=== PATIENT | female | born 1965 | race Caucasian/White ===

== ENCOUNTER 2016-11-27 06:08 | Day surgery (SDC) | payer MEDICARE, OTHER ==
[2016-11-24 18:17] LABS: HEMATOCRIT 35.9 % (36.0-48.0); HEMOGLOBIN 11.6 g/dL (12.0-16.0)
[2016-11-24 20:54] LABS: BUN (BLOOD UREA NITROGEN) 21 MG/DL (6-23); CALCIUM, SERUM 9.4 MG/DL (8.5-10.4); CHLORIDE, SERUM 100 MMOL/L (96-112); CO2 (CARBON DIOXIDE) 25 MMOL/L (24-34); CREATININE 0.98 MG/DL (0.55-1.02); GFR AFRICAN AMERICAN 76 ML/MIN (>=60); GFR NON AFRICAN AMERICAN 66 ML/MIN (>=60); GLUCOSE, SERUM 124 MG/DL (60-99); POTASSIUM, SERUM 4.6 MMOL/L (3.5-5.3); SODIUM, SERUM 134 MMOL/L (135-148)
[~2016-11-27] VITALS: Ht 157.5 cm; Wt 99.8 kg
--- NOTE | ~2016-11-27 | OP ---
Record Of Operation [facility] [address] [place]. [address] NAME: ZURDO GRACIA : 61 STATUS : [place] [facility] [place] PAT#: [id number] AGE: 51 ADM/REG DATE : 11/27/16 MR#: [id number] REPORT SERV DATE: 11/27/16 DICTATED BY: FAVIAN HAYES DATE: 11/27/16 REPORT STATUS : Draft TRANSCRIBED BY: MODL DATE: 11/27/16 DATE OF PROCEDURE: 11/27/2016 PREOPERATIVE DIAGNOSIS: Possible left tonsillar mass. POSTOPERATIVE DIAGNOSIS: Possible left tonsillar mass with small lesion in the vallecula, consistent with ectopic lymphoid tissue. OPERATIVE PROCEDURE: Direct laryngoscopy with biopsy. ANESTHESIA: General endotracheal. ESTIMATED BLOOD LOSS: 2 mL. INTRAOPERATIVE FLUIDS: 450 mL crystalloid. INTRAOPERATIVE FINDINGS: No mass identified in the area of concern around the left tonsillar fossa. A small rust of what appeared to be ectopic lymphoid tissue within the vallecula which was removed for routine histology. OPERATIVE PROCEDURE: The patient was identified in the holding room, transported to the operating room. In the operating room, the patient was placed in the operating room table in supine position. Following induction of anesthesia, the patient was intubated without difficulty. The table was turned to 90 degrees for the operative procedure. Examination of the left tonsillar fossa revealed no mass lesion. Palpation of this area, likewise, revealed no mass within the area of the left tonsil or left tongue base. A direct laryngoscopy was then performed. Once again, there was no mass identified in the area of the left tonsil or left oropharynx. The examination of the larynx revealed the true vocal true and false vocal folds and ventricles to be clear. The post cricoid and piriform sinuses were likewise clear. There was no lesion identified on the laryngeal surface of the epiglottis. Examination of the vallecula did reveal an approximate 5 mm lesion in the central portion of the vallecula which appeared most consistent with an ectopic area of lymphoid tissue. This lesion was excised to confirm its benign histology. Hemostasis was achieved in this area with application of topical adrenaline. On application of topical adrenaline, there was no residual bleeding identified. The patient was awakened from anesthesia, extubated in the operating room, and transported to the recovery room in good condition. The patient tolerated the procedure well. There were no apparent complications. SPECIMENS: Included the lesion from the vallecula, appearing consistent with lymphoid tissue. CLARENCE/HAMLET Favian Hayes, Record Of Operation [address] [address] NAME: ZURDO GRACIA : 61 STATUS : [place] [facility] [place] PAT#: [id number] AGE: 51 ADM/REG DATE : 11/27/16 MR#: [id number] REPORT SERV DATE: 11/27/16 DICTATED BY: FAVIAN HAYES DATE: 11/27/16 REPORT STATUS : Draft TRANSCRIBED BY: HAMLET DATE: 11/27/16 Mirta / [id number] CC: Mirta Dey M.D.
[~2016-11-27 06:08] MED LIST: ASAB PO; BESIVANCE0.6 % OPH; DEPASPRINK PO; DEPO-PROVER150 MG/ML IM; DEPO-PROVERA IM; DUREZOL0.05 % OPH; GLUCOPHAGE1000 MG PO; HUMALOG SC; ILEVRO1.7 ML OPH; JANUVIA100 MG PO; LAMICTAL25 PO; LANTUS SC; LANTUSCART SC; LOTRIMIN-MYCELE15 GM TOP; METHOC750B PO; MIRALAX POWDER1 PKT PO; MOBIC PO/LIQ; MULTIVIT/MIN PO; NORV10 PO; OS500+D PO; PCET PO; PRILO PO; PRIN20 PO; PRINZIDE1 TA1 PO; TOPAMAX50 MG PO; TRAZODONE150 MG PO; ZOCOR10 PO
== END 2016-11-27 14:34 | disposition home or self-care (01) ==
LOC: SDC 06:08
PROVIDERS: Otolaryngology
PROC: 0CBS8ZX Excision of Larynx, Via Natural or Artificial Opening Endoscopic, Diagnostic (ICD-10-PCS; principal; 2016-11-27 07:15)
DX: J38.7 Other diseases of larynx (principal); G40.909 Epilepsy, unspecified, not intractable, without status epilepticus; I10 Essential (primary) hypertension; E78.5 Hyperlipidemia, unspecified; E11.9 Type 2 diabetes mellitus without complications; E66.01 Morbid (severe) obesity due to excess calories; R56.9 Unspecified convulsions; Z68.41 Body mass index [BMI] 40.0-44.9, adult; Z98.49 Cataract extraction status, unspecified eye; Z98.890 Other specified postprocedural states; Z79.899 Other long term (current) drug therapy
CPT/HCPCS: 36415; 80048; 82962; 84703; 85014; 85018; 88305; 93005; J2250; J2370; J2405; J2710; J3010